=== PATIENT | female | born 1950 | race Caucasian/White ===

== ENCOUNTER 2018-03-01 09:37 | Emergency (ER) | payer OTHER ==
[~2018-03-01] VITALS: Ht 157.5 cm; Wt 68.0 kg
[2018-03-01] MEDS ORDERED: SYNTHROID150 MCG (10:01)
[2018-03-01] MEDS ORDERED: COZAAR25 MG (10:02)
== END 2018-03-01 13:08 | disposition home or self-care (01) ==
LOC: ER 09:37
DX: D17.1 Benign lipomatous neoplasm of skin and subcutaneous tissue of trunk (principal)